=== PATIENT | male | born 1965 | race Caucasian/White ===

== ENCOUNTER 2023-03-26 05:13 | Emergency (ER) | payer OTHER ==
[2023-03-26] MEDS ORDERED: Ondansetron PF 4 MG/2 ML Vial ONE ×2 (05:48→08:11)
[2023-03-26 06:25] LABS: #Monocytes 0.5 thou/uL (0.11-0.59); #Neutrophils 10.6 thou/uL (1.40-6.50); %Basophils 0.3 % (0.0-1.0); %Eosinophils 0.1 % (0.0-10.0); %Lymphocytes 4.9 % (21.0-51.0); %Neutrophils 90.2 % (42.0-75.0); Hematocrit 46.5 % (42.0-52.0); Mean Corpuscular HGB CONC 32.3 g/dL (32.0-36.0); Mean Corpuscular Hemoglobin 24.3 pg (27.0-31.0); Mean Corpuscular Volume 75.2 fl (78.0-98.0); Mean Platelet Volume 11.2 fL (7.4-10.4); Platelet Count 286 10x3/uL (130-400); RBC Distribution Width 15.8 % (11.5-14.5); Red Blood Cell (RBC) Count 6.18 mill/uL (4.70-6.10); White Blood Cell (WBC) Count 11.8 10x3/uL (4.8-10.8)
[2023-03-26 07:17] LABS: SARS-CoV-2 NAA Rapid Test Not Detected (NotDetected)
[2023-03-26 07:34] LABS: ALT (SGPT) 43 U/L (8-55); AST (SGOT) 28 U/L (5-34); Albumin 4.1 g/dL (3.5-5.0); Alkaline Phosphatase 64 U/L (40-110); Anion Gap 16 mmol/L (10-20); BUN (Urea Nitrogen) 17 mg/dL (8.4-25.7); Bilirubin, Total 1.1 mg/dL (0.2-1.2); Calc. Creatinine Clearance 0 mL/min (70-130); Calcium 8.9 mg/dL (7.8-10.44); Carbon Dioxide 18 mmol/L (22-29); Chloride 103 mmol/L (98-107); Estimated GFR 85; Glucose 118 mg/dL (70-105); Lipase 19 U/L (8-78); Potassium 3.7 mmol/L (3.5-5.1); Protein, Total 7.1 g/dL (6.0-8.3); Sodium 133 mmol/L (136-145)
[2023-03-26 07:39] LABS: Troponin I Less than 0.010 ng/mL (< 0.028)
[2023-03-26 07:44] LABS: Bacteria/HPF None Seen HPF (None Seen); Bilirubin Negative (Negative); Blood, Urine Negative (Negative); CAUTI Indications for Culture Pelvic or flank pain; Clarity Clear (Clear); Glucose, Urine (Dipstick) Normal (Negative); Ketone, Urine Negative (Negative); Leukocyte Negative Leu/uL (Negative); Nitrite Negative (Negative); Protein, Urine (Dipstick) Negative (Neg-Trace); RBC/HPF None Seen HPF (0-3); Specific Gravity, Urine 1.028 (1.002-1.036); Squamous Epithelial None Seen HPF (0-3); Urobilinogen Normal mg/dL (Less than 2); WBC/HPF 0-3 HPF (0-3); pH, Urine 7.5 (5.0-9.0)
[2023-03-26 07:45] LABS: Urine Culture Reflex No No
[2023-03-26] MEDS ORDERED: Iopamidol 370 76% 100 ML VIAL ONE (10:07)
== END 2023-03-26 08:23 | disposition home or self-care (01) ==
LOC: ERS 05:13
DX: R11.2 Nausea with vomiting, unspecified (principal); R19.7 Diarrhea, unspecified
CPT/HCPCS: 36415; 71045; 74177; 80053; 81001; 83605; 83690; 83735; 84484; 85025; 93005; 94760; 96361; 96374; 96376; J2405; Q9967